=== PATIENT | male | born 1950 | race Caucasian/White ===

== ENCOUNTER 2022-12-05 08:03 | Inpatient (IN) | payer MEDICARE, BC ==
[2022-12-05] MEDS ORDERED: Warfarin Sliding Scale PO SCH (13:15)
[2022-12-05] MEDS ORDERED: Bisacodyl 10 MG Supp RECTAL PRN (13:19)
[2022-12-05] MEDS ORDERED: Furosemide 20 MG Tab PO PRN (13:19)
[2022-12-05] MEDS ORDERED: Warfarin 5 MG Tab PO SCH (13:30)
[2022-12-05] MEDS: Gabapentin 600 MG Tab PO SCH ×2 (13:54→21:07)
[2022-12-05] MEDS: oxyCODONE 5 MG Tab PO PRN ×2 (13:54→18:22)
[2022-12-05] MEDS ORDERED: Warfarin 2.5 MG Tab PO ONE (16:00)
[2022-12-05] MEDS: Acetaminophen 500 MG Tab PO PRN (17:24)
[2022-12-05] MEDS: predniSONE 5 MG Tab PO SCH (18:27)
[2022-12-05] MEDS ORDERED: Furosemide 40 MG Tab PO ONE (18:48)
[2022-12-05] MEDS: Ascorbic Acid 500 MG Tab PO SCH (21:07)
[2022-12-05] MEDS: Lisinopril 2.5 MG Tab PO SCH (21:07)
[2022-12-05] MEDS: Digoxin 250 MCG Tab PO SCH (21:07)
[2022-12-05] MEDS: Metoprolol Tartrate 25 MG Tab PO SCH (21:07)
[2022-12-05] MEDS: Tamsulosin 0.4 MG Cap.ER PO SCH (21:07)
[2022-12-05] MEDS: Fluticasone NASAL Spray 16 GM Bottle NASBOTH SCH (21:12)
[2022-12-05] MEDS: Non-Formulary Medication 1 Each (Azelastine Hcl [Azelastine Hcl] 137 MCG/0.137 ML Spray.Pu NASBOTH SCH (21:12)
[2022-12-05] MEDS: Lactulose Soln 10 GM/15 ML 15 ML UD Cup PO SCH (21:12)
[2022-12-06] MEDS: oxyCODONE 5 MG Tab PO PRN ×4 (01:30→15:06)
[2022-12-06] MEDS: Acetaminophen 500 MG Tab PO PRN (05:09)
[2022-12-06] MEDS: Gabapentin 600 MG Tab PO SCH ×3 (09:08→21:05)
[2022-12-06] MEDS: predniSONE 5 MG Tab PO SCH ×2 (09:09→18:23)
[2022-12-06] MEDS: Lactulose Soln 10 GM/15 ML 15 ML UD Cup PO SCH ×2 (09:09→20:50)
[2022-12-06] MEDS: Aspirin 81 MG Tab.Chew PO SCH (09:09)
[2022-12-06] MEDS: Metoprolol Tartrate 25 MG Tab PO SCH ×2 (09:10→20:59)
[2022-12-06] MEDS: Lisinopril 2.5 MG Tab PO SCH ×2 (09:10→21:00)
[2022-12-06] MEDS: Ascorbic Acid 500 MG Tab PO SCH ×2 (09:11→21:02)
[2022-12-06] MEDS: Tiotropium Bromide 4 GM Inhalation Spray (2.5mcg/1 dose; 10 doses) INH SCH (09:11)
[2022-12-06] MEDS: Menthol 10%/Methyl Salicylate 30% 85 GM Tube TOP PRN (11:34)
[2022-12-06] MEDS ORDERED: Warfarin 5 MG Tab PO SCH (13:19)
[2022-12-06] MEDS: Acetaminophen 500 MG Tab PO SCH ×3 (14:22→21:00)
[2022-12-06] MEDS ORDERED: Warfarin 2.5 MG Tab PO ONE (16:00)
[2022-12-06] MEDS: Non-Formulary Medication 1 Each (Azelastine Hcl [Azelastine Hcl] 137 MCG/0.137 ML Spray.Pu NASBOTH SCH (20:50)
[2022-12-06] MEDS: Fluticasone NASAL Spray 16 GM Bottle NASBOTH SCH (20:51)
[2022-12-06] MEDS: Digoxin 250 MCG Tab PO SCH (20:56)
[2022-12-06] MEDS: Tamsulosin 0.4 MG Cap.ER PO SCH (20:57)
[2022-12-07] MEDS: predniSONE 5 MG Tab PO SCH ×2 (08:49→17:11)
[2022-12-07] MEDS: Aspirin 81 MG Tab.Chew PO SCH (08:50)
[2022-12-07] MEDS: Lactulose Soln 10 GM/15 ML 15 ML UD Cup PO SCH ×2 (08:50→20:15)
[2022-12-07] MEDS: Tiotropium Bromide 4 GM Inhalation Spray (2.5mcg/1 dose; 10 doses) INH SCH (08:51)
[2022-12-07] MEDS: Acetaminophen 500 MG Tab PO SCH ×4 (08:52→20:18)
[2022-12-07] MEDS: Metoprolol Tartrate 25 MG Tab PO SCH ×2 (08:57→20:16)
[2022-12-07] MEDS: Gabapentin 600 MG Tab PO SCH ×3 (08:57→20:11)
[2022-12-07] MEDS: Lisinopril 2.5 MG Tab PO SCH ×2 (08:58→20:16)
[2022-12-07] MEDS: Ascorbic Acid 500 MG Tab PO SCH ×2 (09:14→20:18)
[2022-12-07] MEDS: oxyCODONE 5 MG Tab PO PRN ×2 (13:40→20:10)
[2022-12-07] MEDS: Warfarin 5 MG Tab PO SCH (17:10)
[2022-12-07] MEDS: Azelastine Nasal Soln 30 ML Spray Bottle NASBOTH SCH (20:14)
[2022-12-07] MEDS: Fluticasone NASAL Spray 16 GM Bottle NASBOTH SCH (20:15)
[2022-12-07] MEDS: Digoxin 250 MCG Tab PO SCH (20:16)
[2022-12-07] MEDS: Tamsulosin 0.4 MG Cap.ER PO SCH (20:17)
[2022-12-08] MEDS: oxyCODONE 5 MG Tab PO PRN ×4 (05:22→20:32)
[2022-12-08] MEDS: Metoprolol Tartrate 25 MG Tab PO SCH ×2 (08:27→20:37)
[2022-12-08] MEDS: Gabapentin 600 MG Tab PO SCH ×3 (08:27→20:34)
[2022-12-08] MEDS: Lisinopril 2.5 MG Tab PO SCH ×2 (08:28→20:34)
[2022-12-08] MEDS: Acetaminophen 500 MG Tab PO SCH ×4 (08:28→20:38)
[2022-12-08] MEDS: Lactulose Soln 10 GM/15 ML 15 ML UD Cup PO SCH ×2 (08:29→20:34)
[2022-12-08] MEDS: Ascorbic Acid 500 MG Tab PO SCH ×2 (08:29→20:39)
[2022-12-08] MEDS: Aspirin 81 MG Tab.Chew PO SCH (08:29)
[2022-12-08] MEDS: Tiotropium Bromide 4 GM Inhalation Spray (2.5mcg/1 dose; 10 doses) INH SCH (08:30)
[2022-12-08] MEDS: predniSONE 5 MG Tab PO SCH ×2 (08:30→17:15)
[2022-12-08] MEDS: Warfarin 2.5 MG Tab PO SCH (17:15)
[2022-12-08] MEDS: Azelastine Nasal Soln 30 ML Spray Bottle NASBOTH SCH (20:35)
[2022-12-08] MEDS: Fluticasone NASAL Spray 16 GM Bottle NASBOTH SCH (20:35)
[2022-12-08] MEDS: Tamsulosin 0.4 MG Cap.ER PO SCH (20:36)
[2022-12-08] MEDS: Digoxin 250 MCG Tab PO SCH (20:37)
[2022-12-09] MEDS: predniSONE 5 MG Tab PO SCH ×2 (08:40→17:40)
[2022-12-09] MEDS: Aspirin 81 MG Tab.Chew PO SCH (08:41)
[2022-12-09] MEDS: Lactulose Soln 10 GM/15 ML 15 ML UD Cup PO SCH ×2 (08:41→20:27)
[2022-12-09] MEDS: Lisinopril 2.5 MG Tab PO SCH ×2 (08:41→20:33)
[2022-12-09] MEDS: Metoprolol Tartrate 25 MG Tab PO SCH ×2 (08:42→20:32)
[2022-12-09] MEDS: Ascorbic Acid 500 MG Tab PO SCH ×2 (08:42→20:34)
[2022-12-09] MEDS: Acetaminophen 500 MG Tab PO SCH ×4 (08:43→20:33)
[2022-12-09] MEDS: Tiotropium Bromide 4 GM Inhalation Spray (2.5mcg/1 dose; 10 doses) INH SCH (08:43)
[2022-12-09] MEDS: Gabapentin 600 MG Tab PO SCH ×3 (08:55→20:32)
[2022-12-09] MEDS: Warfarin 5 MG Tab PO SCH (16:18)
[2022-12-09] MEDS: Azelastine Nasal Soln 30 ML Spray Bottle NASBOTH SCH (20:26)
[2022-12-09] MEDS: Fluticasone NASAL Spray 16 GM Bottle NASBOTH SCH (20:28)
[2022-12-09] MEDS: Tamsulosin 0.4 MG Cap.ER PO SCH (20:30)
[2022-12-09] MEDS: Digoxin 250 MCG Tab PO SCH (20:31)
[2022-12-10] MEDS: Gabapentin 600 MG Tab PO SCH ×3 (08:08→20:16)
[2022-12-10] MEDS: predniSONE 5 MG Tab PO SCH ×2 (08:08→17:20)
[2022-12-10] MEDS: Aspirin 81 MG Tab.Chew PO SCH (08:08)
[2022-12-10] MEDS: Lactulose Soln 10 GM/15 ML 15 ML UD Cup PO SCH (08:08)
[2022-12-10] MEDS: Ascorbic Acid 500 MG Tab PO SCH ×2 (08:09→20:22)
[2022-12-10] MEDS: Acetaminophen 500 MG Tab PO SCH ×4 (08:12→20:19)
[2022-12-10] MEDS: Tiotropium Bromide 4 GM Inhalation Spray (2.5mcg/1 dose; 10 doses) INH SCH (08:13)
[2022-12-10] MEDS: Metoprolol Tartrate 25 MG Tab PO SCH ×2 (08:55→20:17)
[2022-12-10] MEDS: Lisinopril 2.5 MG Tab PO SCH ×2 (08:55→20:18)
[2022-12-10] MEDS: Warfarin 2.5 MG Tab PO SCH (16:28)
[2022-12-10] MEDS: Digoxin 250 MCG Tab PO SCH (20:18)
[2022-12-10] MEDS: Tamsulosin 0.4 MG Cap.ER PO SCH (20:20)
[2022-12-10] MEDS: Azelastine Nasal Soln 30 ML Spray Bottle NASBOTH SCH (20:20)
[2022-12-10] MEDS: Fluticasone NASAL Spray 16 GM Bottle NASBOTH SCH (20:21)
[2022-12-10] MEDS: Menthol 10%/Methyl Salicylate 30% 85 GM Tube TOP PRN (20:23)
[2022-12-11] MEDS: Lactulose Soln 10 GM/15 ML 15 ML UD Cup PO SCH ×3 (00:39→20:15)
[2022-12-11] MEDS: predniSONE 5 MG Tab PO SCH ×2 (08:16→17:47)
[2022-12-11] MEDS: Tiotropium Bromide 4 GM Inhalation Spray (2.5mcg/1 dose; 10 doses) INH SCH (08:16)
[2022-12-11] MEDS: Gabapentin 600 MG Tab PO SCH ×3 (08:16→20:13)
[2022-12-11] MEDS: Ascorbic Acid 500 MG Tab PO SCH ×2 (08:16→20:17)
[2022-12-11] MEDS: Aspirin 81 MG Tab.Chew PO SCH (08:17)
[2022-12-11] MEDS: Lisinopril 2.5 MG Tab PO SCH ×2 (08:22→20:15)
[2022-12-11] MEDS: Metoprolol Tartrate 25 MG Tab PO SCH ×2 (08:23→20:16)
[2022-12-11] MEDS: Acetaminophen 500 MG Tab PO SCH ×4 (08:23→20:17)
[2022-12-11] MEDS: oxyCODONE 5 MG Tab PO PRN ×2 (08:23→16:46)
[2022-12-11] MEDS: Menthol 10%/Methyl Salicylate 30% 85 GM Tube TOP PRN ×2 (08:24→17:47)
[2022-12-11] MEDS: Warfarin 2.5 MG Tab PO SCH (16:04)
[2022-12-11] MEDS: Fluticasone NASAL Spray 16 GM Bottle NASBOTH SCH (20:14)
[2022-12-11] MEDS: Digoxin 250 MCG Tab PO SCH (20:15)
[2022-12-11] MEDS: Azelastine Nasal Soln 30 ML Spray Bottle NASBOTH SCH (20:15)
[2022-12-11] MEDS: Tamsulosin 0.4 MG Cap.ER PO SCH (20:17)
[2022-12-12] MEDS: oxyCODONE 5 MG Tab PO PRN ×2 (01:39→07:40)
[2022-12-12] MEDS: Acetaminophen 500 MG Tab PO PRN ×2 (01:41→07:49)
[2022-12-12] MEDS: predniSONE 5 MG Tab PO SCH ×2 (09:01→17:13)
[2022-12-12] MEDS: Lactulose Soln 10 GM/15 ML 15 ML UD Cup PO SCH ×3 (09:03→20:54)
[2022-12-12] MEDS: Aspirin 81 MG Tab.Chew PO SCH (09:03)
[2022-12-12] MEDS: Acetaminophen 500 MG Tab PO SCH ×4 (09:04→20:30)
[2022-12-12] MEDS: Ascorbic Acid 500 MG Tab PO SCH ×2 (09:04→20:30)
[2022-12-12] MEDS: Tiotropium Bromide 4 GM Inhalation Spray (2.5mcg/1 dose; 10 doses) INH SCH (09:05)
[2022-12-12] MEDS: Gabapentin 600 MG Tab PO SCH ×3 (09:14→20:30)
[2022-12-12] MEDS: Metoprolol Tartrate 25 MG Tab PO SCH (10:18)
[2022-12-12] MEDS: Lisinopril 2.5 MG Tab PO SCH (10:21)
[2022-12-12] MEDS: Menthol 10%/Methyl Salicylate 30% 85 GM Tube TOP PRN ×2 (13:49→20:31)
[2022-12-12] MEDS: Warfarin 5 MG Tab PO SCH (17:12)
[2022-12-12] MEDS: Tamsulosin 0.4 MG Cap.ER PO SCH (20:30)
[2022-12-12] MEDS: Digoxin 250 MCG Tab PO SCH (20:30)
[2022-12-12] MEDS: Azelastine Nasal Soln 30 ML Spray Bottle NASBOTH SCH (20:31)
[2022-12-12] MEDS: Fluticasone NASAL Spray 16 GM Bottle NASBOTH SCH (20:31)
[2022-12-13] MEDS: oxyCODONE 5 MG Tab PO PRN ×3 (01:57→17:18)
[2022-12-13] MEDS: predniSONE 5 MG Tab PO SCH ×2 (08:11→18:11)
[2022-12-13] MEDS: Gabapentin 600 MG Tab PO SCH ×3 (08:11→20:27)
[2022-12-13] MEDS: Lactulose Soln 10 GM/15 ML 15 ML UD Cup PO SCH ×2 (08:11→20:41)
[2022-12-13] MEDS: Aspirin 81 MG Tab.Chew PO SCH (08:11)
[2022-12-13] MEDS: Tiotropium Bromide 4 GM Inhalation Spray (2.5mcg/1 dose; 10 doses) INH SCH (08:12)
[2022-12-13] MEDS: Acetaminophen 500 MG Tab PO SCH ×4 (08:13→20:28)
[2022-12-13] MEDS: Ascorbic Acid 500 MG Tab PO SCH ×2 (08:14→20:28)
[2022-12-13] MEDS: Menthol 10%/Methyl Salicylate 30% 85 GM Tube TOP PRN ×2 (08:16→20:34)
[2022-12-13] MEDS: Furosemide 20 MG Tab PO SCH (10:04)
[2022-12-13] MEDS: Lisinopril 2.5 MG Tab PO SCH (10:11)
[2022-12-13] MEDS: Warfarin 2.5 MG Tab PO SCH (16:07)
[2022-12-13] MEDS: Melatonin 3 MG Tab PO SCH (20:26)
[2022-12-13] MEDS: Fluticasone NASAL Spray 16 GM Bottle NASBOTH SCH (20:26)
[2022-12-13] MEDS: Azelastine Nasal Soln 30 ML Spray Bottle NASBOTH SCH (20:26)
[2022-12-13] MEDS: Digoxin 250 MCG Tab PO SCH (20:27)
[2022-12-13] MEDS: Tamsulosin 0.4 MG Cap.ER PO SCH (20:27)
[2022-12-13] MEDS: Psyllium Husk Powder Sugar Free 5.85 GM Packet PO SCH (20:41)
[2022-12-14] MEDS: oxyCODONE 5 MG Tab PO PRN ×2 (00:12→11:59)
[2022-12-14] MEDS: Aspirin 81 MG Tab.Chew PO SCH (08:25)
[2022-12-14] MEDS: Furosemide 20 MG Tab PO SCH (08:26)
[2022-12-14] MEDS: Gabapentin 600 MG Tab PO SCH ×3 (08:26→20:22)
[2022-12-14] MEDS: Ascorbic Acid 500 MG Tab PO SCH ×2 (08:26→20:25)
[2022-12-14] MEDS: Tiotropium Bromide 4 GM Inhalation Spray (2.5mcg/1 dose; 10 doses) INH SCH (08:26)
[2022-12-14] MEDS: predniSONE 5 MG Tab PO SCH ×2 (08:26→17:00)
[2022-12-14] MEDS: Acetaminophen 500 MG Tab PO SCH ×4 (08:28→20:23)
[2022-12-14] MEDS: Lactulose Soln 10 GM/15 ML 15 ML UD Cup PO SCH ×2 (08:40→20:24)
[2022-12-14] MEDS: Lisinopril 2.5 MG Tab PO SCH (08:53)
[2022-12-14] MEDS: Warfarin 5 MG Tab PO SCH (16:54)
[2022-12-14] MEDS: Menthol 10%/Methyl Salicylate 30% 85 GM Tube TOP PRN (20:08)
[2022-12-14] MEDS: Digoxin 250 MCG Tab PO SCH (20:22)
[2022-12-14] MEDS: Melatonin 3 MG Tab PO SCH (20:23)
[2022-12-14] MEDS: Azelastine Nasal Soln 30 ML Spray Bottle NASBOTH SCH (20:24)
[2022-12-14] MEDS: Tamsulosin 0.4 MG Cap.ER PO SCH (20:24)
[2022-12-14] MEDS: Psyllium Husk Powder Sugar Free 5.85 GM Packet PO SCH (20:24)
[2022-12-14] MEDS: Fluticasone NASAL Spray 16 GM Bottle NASBOTH SCH (20:24)
[2022-12-15] MEDS: oxyCODONE 5 MG Tab PO PRN ×3 (09:22→20:46)
[2022-12-15] MEDS: Acetaminophen 500 MG Tab PO SCH ×4 (09:24→20:49)
[2022-12-15] MEDS: predniSONE 5 MG Tab PO SCH ×2 (09:25→18:11)
[2022-12-15] MEDS: Aspirin 81 MG Tab.Chew PO SCH (09:25)
[2022-12-15] MEDS: Lactulose Soln 10 GM/15 ML 15 ML UD Cup PO SCH ×2 (09:25→20:29)
[2022-12-15] MEDS: Furosemide 20 MG Tab PO SCH (09:25)
[2022-12-15] MEDS: Gabapentin 600 MG Tab PO SCH ×3 (09:26→20:46)
[2022-12-15] MEDS: Ascorbic Acid 500 MG Tab PO SCH ×2 (09:28→20:52)
[2022-12-15] MEDS: Tiotropium Bromide 4 GM Inhalation Spray (2.5mcg/1 dose; 10 doses) INH SCH (09:28)
[2022-12-15] MEDS: Lisinopril 2.5 MG Tab PO SCH (09:29)
[2022-12-15] MEDS: Warfarin 2.5 MG Tab PO SCH (16:25)
[2022-12-15] MEDS: Azelastine Nasal Soln 30 ML Spray Bottle NASBOTH SCH (20:45)
[2022-12-15] MEDS: Tamsulosin 0.4 MG Cap.ER PO SCH (20:46)
[2022-12-15] MEDS: Digoxin 250 MCG Tab PO SCH (20:48)
[2022-12-15] MEDS: Fluticasone NASAL Spray 16 GM Bottle NASBOTH SCH (20:48)
[2022-12-15] MEDS: Melatonin 3 MG Tab PO SCH (20:49)
[2022-12-15] MEDS: Psyllium Husk Powder Sugar Free 5.85 GM Packet PO SCH (20:51)
[2022-12-16] MEDS: oxyCODONE 5 MG Tab PO PRN ×3 (07:45→21:56)
[2022-12-16] MEDS: predniSONE 5 MG Tab PO SCH ×2 (07:48→17:38)
[2022-12-16] MEDS: Menthol 10%/Methyl Salicylate 30% 85 GM Tube TOP PRN ×2 (07:50→20:30)
[2022-12-16] MEDS: Furosemide 20 MG Tab PO SCH (08:00)
[2022-12-16] MEDS: Ascorbic Acid 500 MG Tab PO SCH ×2 (08:00→20:54)
[2022-12-16] MEDS: Acetaminophen 500 MG Tab PO SCH ×4 (08:00→20:51)
[2022-12-16] MEDS: Aspirin 81 MG Tab.Chew PO SCH (08:00)
[2022-12-16] MEDS: Gabapentin 600 MG Tab PO SCH ×3 (08:00→20:51)
[2022-12-16] MEDS: Lisinopril 2.5 MG Tab PO SCH (08:01)
[2022-12-16] MEDS: Lactulose Soln 10 GM/15 ML 15 ML UD Cup PO SCH ×2 (08:07→20:50)
[2022-12-16] MEDS: Tiotropium Bromide 4 GM Inhalation Spray (2.5mcg/1 dose; 10 doses) INH SCH (11:33)
[2022-12-16] MEDS: Warfarin 5 MG Tab PO SCH (16:42)
[2022-12-16] MEDS: Fluticasone NASAL Spray 16 GM Bottle NASBOTH SCH (20:50)
[2022-12-16] MEDS: Azelastine Nasal Soln 30 ML Spray Bottle NASBOTH SCH (20:50)
[2022-12-16] MEDS: Psyllium Husk Powder Sugar Free 5.85 GM Packet PO SCH (20:51)
[2022-12-16] MEDS: Digoxin 250 MCG Tab PO SCH (20:52)
[2022-12-16] MEDS: Melatonin 3 MG Tab PO SCH (20:53)
[2022-12-16] MEDS: Tamsulosin 0.4 MG Cap.ER PO SCH (20:53)
[2022-12-16] MEDS: Acetaminophen 500 MG Tab PO PRN (21:57)
[2022-12-17] MEDS ORDERED: Fluticasone NASAL Spray 16 GM Bottle NASBOTH PRN (08:39)
[2022-12-17] MEDS: predniSONE 5 MG Tab PO SCH ×2 (08:52→18:43)
[2022-12-17] MEDS: Acetaminophen 500 MG Tab PO SCH ×4 (08:53→20:38)
[2022-12-17] MEDS: Aspirin 81 MG Tab.Chew PO SCH (08:53)
[2022-12-17] MEDS: Tiotropium Bromide 4 GM Inhalation Spray (2.5mcg/1 dose; 10 doses) INH SCH (08:54)
[2022-12-17] MEDS: oxyCODONE 5 MG Tab PO PRN ×4 (08:54→20:41)
[2022-12-17] MEDS: Lisinopril 2.5 MG Tab PO SCH (08:54)
[2022-12-17] MEDS: Ascorbic Acid 500 MG Tab PO SCH ×2 (08:54→20:39)
[2022-12-17] MEDS: Gabapentin 600 MG Tab PO SCH ×3 (08:54→20:38)
[2022-12-17] MEDS: Furosemide 20 MG Tab PO SCH (08:54)
[2022-12-17] MEDS: Warfarin 2.5 MG Tab PO SCH (16:35)
[2022-12-17] MEDS: Azelastine Nasal Soln 30 ML Spray Bottle NASBOTH SCH (20:31)
[2022-12-17] MEDS: Digoxin 250 MCG Tab PO SCH (20:31)
[2022-12-17] MEDS: Tamsulosin 0.4 MG Cap.ER PO SCH (20:31)
[2022-12-17] MEDS: Menthol 10%/Methyl Salicylate 30% 85 GM Tube TOP PRN (20:40)
[2022-12-18] MEDS: oxyCODONE 5 MG Tab PO PRN ×2 (04:56→20:01)
[2022-12-18] MEDS: Aspirin 81 MG Tab.Chew PO SCH (08:53)
[2022-12-18] MEDS: Ascorbic Acid 500 MG Tab PO SCH ×2 (08:53→20:04)
[2022-12-18] MEDS: Acetaminophen 500 MG Tab PO SCH ×4 (08:54→20:02)
[2022-12-18] MEDS: Furosemide 20 MG Tab PO SCH (08:54)
[2022-12-18] MEDS: predniSONE 5 MG Tab PO SCH ×2 (08:54→17:01)
[2022-12-18] MEDS: Tiotropium Bromide 4 GM Inhalation Spray (2.5mcg/1 dose; 10 doses) INH SCH (08:55)
[2022-12-18] MEDS: Lisinopril 2.5 MG Tab PO SCH (09:00)
[2022-12-18] MEDS: Gabapentin 600 MG Tab PO SCH ×3 (09:00→20:01)
[2022-12-18] MEDS: Warfarin 2.5 MG Tab PO SCH (16:57)
[2022-12-18] MEDS: Tamsulosin 0.4 MG Cap.ER PO SCH (20:02)
[2022-12-18] MEDS: Digoxin 250 MCG Tab PO SCH (20:03)
[2022-12-18] MEDS: Azelastine Nasal Soln 30 ML Spray Bottle NASBOTH SCH (20:04)
[2022-12-19] MEDS: Menthol 10%/Methyl Salicylate 30% 85 GM Tube TOP PRN ×2 (07:45→18:50)
[2022-12-19] MEDS: predniSONE 5 MG Tab PO SCH ×2 (08:22→18:15)
[2022-12-19] MEDS: Aspirin 81 MG Tab.Chew PO SCH (08:22)
[2022-12-19] MEDS: Gabapentin 600 MG Tab PO SCH ×3 (08:23→20:14)
[2022-12-19] MEDS: Furosemide 20 MG Tab PO SCH (08:24)
[2022-12-19] MEDS: oxyCODONE 5 MG Tab PO PRN (08:24)
[2022-12-19] MEDS: Acetaminophen 500 MG Tab PO SCH ×4 (08:25→20:15)
[2022-12-19] MEDS: Lisinopril 2.5 MG Tab PO SCH (08:26)
[2022-12-19] MEDS: Ascorbic Acid 500 MG Tab PO SCH ×2 (08:26→20:14)
[2022-12-19] MEDS: Tiotropium Bromide 4 GM Inhalation Spray (2.5mcg/1 dose; 10 doses) INH SCH (08:27)
[2022-12-19] MEDS: Acetaminophen/HYDROcodone 325-5 MG Tab PO PRN ×2 (12:39→16:48)
[2022-12-19] MEDS: Warfarin 5 MG Tab PO SCH (16:00)
[2022-12-19] MEDS: Tamsulosin 0.4 MG Cap.ER PO SCH (20:13)
[2022-12-19] MEDS: Azelastine Nasal Soln 30 ML Spray Bottle NASBOTH SCH (20:14)
[2022-12-19] MEDS: Digoxin 250 MCG Tab PO SCH (20:18)
[2022-12-20] MEDS: Acetaminophen/HYDROcodone 325-5 MG Tab PO PRN ×5 (04:10→22:01)
[2022-12-20] MEDS: Lisinopril 2.5 MG Tab PO SCH (08:11)
[2022-12-20] MEDS: Acetaminophen 500 MG Tab PO SCH ×4 (08:11→20:01)
[2022-12-20] MEDS: Tiotropium Bromide 4 GM Inhalation Spray (2.5mcg/1 dose; 10 doses) INH SCH (08:11)
[2022-12-20] MEDS: Furosemide 20 MG Tab PO SCH ×2 (08:11→13:25)
[2022-12-20] MEDS: predniSONE 5 MG Tab PO SCH ×2 (08:12→17:13)
[2022-12-20] MEDS: Ascorbic Acid 500 MG Tab PO SCH ×2 (08:12→20:00)
[2022-12-20] MEDS: Aspirin 81 MG Tab.Chew PO SCH (08:12)
[2022-12-20] MEDS: Menthol 10%/Methyl Salicylate 30% 85 GM Tube TOP PRN ×2 (08:15→19:55)
[2022-12-20] MEDS: Gabapentin 600 MG Tab PO SCH ×3 (08:15→20:00)
[2022-12-20] MEDS: Warfarin 2.5 MG Tab PO SCH (16:35)
[2022-12-20] MEDS: Tamsulosin 0.4 MG Cap.ER PO SCH (20:00)
[2022-12-20] MEDS: Digoxin 250 MCG Tab PO SCH (20:00)
[2022-12-20] MEDS: Azelastine Nasal Soln 30 ML Spray Bottle NASBOTH SCH (20:01)
[2022-12-21] MEDS: Acetaminophen/HYDROcodone 325-5 MG Tab PO PRN ×5 (02:49→22:35)
[2022-12-21] MEDS: Aspirin 81 MG Tab.Chew PO SCH (08:56)
[2022-12-21] MEDS: Furosemide 20 MG Tab PO SCH ×2 (08:56→13:10)
[2022-12-21] MEDS: Gabapentin 600 MG Tab PO SCH ×3 (08:56→20:42)
[2022-12-21] MEDS: predniSONE 5 MG Tab PO SCH ×2 (08:56→17:13)
[2022-12-21] MEDS: Acetaminophen 500 MG Tab PO SCH ×4 (08:57→20:41)
[2022-12-21] MEDS: Lisinopril 2.5 MG Tab PO SCH (08:57)
[2022-12-21] MEDS: Ascorbic Acid 500 MG Tab PO SCH ×2 (08:57→20:40)
[2022-12-21] MEDS: Menthol 10%/Methyl Salicylate 30% 85 GM Tube TOP PRN (08:58)
[2022-12-21] MEDS: Tiotropium Bromide 4 GM Inhalation Spray (2.5mcg/1 dose; 10 doses) INH SCH (08:58)
[2022-12-21] MEDS: Warfarin 5 MG Tab PO SCH (16:49)
[2022-12-21] MEDS: Azelastine Nasal Soln 30 ML Spray Bottle NASBOTH SCH (20:40)
[2022-12-21] MEDS: Digoxin 250 MCG Tab PO SCH (20:42)
[2022-12-21] MEDS: Tamsulosin 0.4 MG Cap.ER PO SCH (20:42)
[2022-12-22] MEDS: Acetaminophen/HYDROcodone 325-5 MG Tab PO PRN ×2 (02:30→06:50)
[2022-12-22] MEDS: Lisinopril 2.5 MG Tab PO SCH (08:38)
[2022-12-22] MEDS: Aspirin 81 MG Tab.Chew PO SCH (08:38)
[2022-12-22] MEDS: Ascorbic Acid 500 MG Tab PO SCH (08:38)
[2022-12-22] MEDS: predniSONE 5 MG Tab PO SCH (08:38)
[2022-12-22] MEDS: Acetaminophen 500 MG Tab PO SCH (08:38)
[2022-12-22] MEDS: Furosemide 20 MG Tab PO SCH (08:38)
[2022-12-22] MEDS: Tiotropium Bromide 4 GM Inhalation Spray (2.5mcg/1 dose; 10 doses) INH SCH (08:39)
[2022-12-22] MEDS: Gabapentin 600 MG Tab PO SCH (08:39)
[2022-12-22] MEDS ORDERED: oxyCODONE 5 MG Tab PO PRN (10:50)
[2022-12-22] MEDS: Menthol 10%/Methyl Salicylate 30% 85 GM Tube TOP PRN (11:04)
== END 2022-12-22 11:47 | disposition home health service (06) | DRG 948 ==
LOC: FB.MS 11:30
PROVIDERS: ADMIT Family Medicine; ATTEND Family Medicine
DX: R53.1 Weakness (principal); I48.19 Other persistent atrial fibrillation; D62 Acute posthemorrhagic anemia; Z68.41 Body mass index [BMI] 40.0-44.9, adult; I50.32 Chronic diastolic (congestive) heart failure; I11.0 Hypertensive heart disease with heart failure; F32.A Depression, unspecified; Z96.643 Presence of artificial hip joint, bilateral; I95.9 Hypotension, unspecified; R06.09 Other forms of dyspnea; G89.4 Chronic pain syndrome; M19.019 Primary osteoarthritis, unspecified shoulder; E66.01 Morbid (severe) obesity due to excess calories; N40.0 Benign prostatic hyperplasia without lower urinary tract symptoms; Z79.01 Long term (current) use of anticoagulants; Z79.82 Long term (current) use of aspirin; Z79.899 Other long term (current) drug therapy; Z79.1 Long term (current) use of non-steroidal anti-inflammatories (NSAID); Z88.6 Allergy status to analgesic agent; Z88.8 Allergy status to other drugs, medicaments and biological substances; Z87.19 Personal history of other diseases of the digestive system; Z90.89 Acquired absence of other organs; Z90.49 Acquired absence of other specified parts of digestive tract; Z98.890 Other specified postprocedural states; Z87.891 Personal history of nicotine dependence
CPT/HCPCS: 36415; 85610; 97110-GP; 97116-GP; 97161-GP; 97165-GO; 97530-GO; 97530-GP; 97535-GO; 99305; 99309; 99315; A9270-GY; J7512